=== PATIENT | male | born 1990 | race Caucasian/White ===

== ENCOUNTER 2017-04-13 19:58 | Emergency (ER) | payer SELFPAY | END 2017-04-13 20:41 | disposition home or self-care (01) | LOC: ER 19:58 | PROC: 0CQ1XZZ Repair Lower Lip, External Approach (ICD-10-PCS; principal; 2017-04-13) | DX: S01.511A Laceration without foreign body of lip, initial encounter (principal); W21.07XA Struck by softball, initial encounter | CPT/HCPCS: 99283 ==